=== PATIENT | male | born 1960 | race Caucasian/White ===

== ENCOUNTER 2016-12-15 07:32 | Day surgery (SDC) | payer BC ==
[2016-12-15] MEDS ORDERED: LIDOCAINE HCL 1% MPF SOL ONE (07:48)
[2016-12-15] MEDS ORDERED: PROPOFOL 500 MG/50 ML EMU IV ONE (07:48)
[2016-12-15 10:18] VITALS: BP 124/78; PULSE 49; RESP 18; TEMP 97.7; O2SAT 98
== END 2016-12-15 10:40 | disposition home or self-care (01) ==
LOC: SURG 07:32
PROVIDERS: ATTEND Surgery
DX: Z12.11 Encounter for screening for malignant neoplasm of colon (principal); D50.0 Iron deficiency anemia secondary to blood loss (chronic); Z93.1 Gastrostomy status; K92.1 Melena
CPT/HCPCS: 43239; 45378; 99001; J2001; J2704